=== PATIENT | male | born 1985 | race Caucasian/White ===

== ENCOUNTER → 2021-08-15 09:43 | Outpatient (CLI) | payer OTHER, SELFPAY ==
--- NOTE | 2021-08-15 09:47 | DI.MRI.S_ITS ---
PROCEDURE: MR ANKLE RT WO CON INDICATIONS: Pain in right foot TECHNIQUE: Noncontrast sagittal T1 spin echo and T2 fast spin echo with fat saturation, axial proton density fast spin echo and T2 fast spin echo with fat saturation, coronal T1 spin echo and T2 fast spin echo with fat saturation through the ankle/hindfoot. COMPARISON: None. FINDINGS: Image quality: Excellent. Bones and joints: No bone marrow contusions or fractures. No hindfoot coalitions. No osteochondral injuries of the talar dome. No pathologic joint effusions. Medial structures: The posterior tibialis, flexor digitorum longus, and flexor hallucis longus tendons are intact. The posterior tibial neurovascular bundle appears normal within the tarsal tunnel, without extrinsic mass effect. The deep layer (anterior and posterior tibiotalar ligaments) and superficial layer (tibionavicular, tibiospring, and tibiocalcaneal ligaments) of the deltoid ligament appear normal. The spring ligament components (superomedial calcaneonavicular, medioplantar oblique calcaneonavicular, and inferoplantar longitudinal ligaments) are intact. Lateral structures: The anterior talofibular, calcaneofibular, and posterior talofibular ligaments appear intact. More superiorly, the anterior and posterior tibiofibular ligaments appear mildly thickened with intrasubstance T2 hyperintense signal suggestive of sprain/low-grade intrasubstance partial-thickness tear. The tibiofibular syndesmosis is normal in width at 2 mm or less. The peroneus longus and brevis tendons demonstrate normal location and morphology. Adjacent bony peroneal tubercle and retrotrochlear prominence are normal in size. The sinus tarsi demonstrates normal fatty signal, without edema, fibrosis, or cyst formation. Visualized sinus tarsi components (cervical ligament, interosseous talocalcaneal ligament, roots of the inferior extensor retinaculum) appear normal. The calcaneonavicular and calcaneocuboid components of the bifurcate ligament appear intact. The dorsal calcaneocuboid ligament appears intact. Anterior structures: The tibialis anterior, extensor hallucis longus, and extensor digitorum longus tendons appear intact. The dorsal talonavicular ligament appears intact. Posterior and plantar structures: Achilles tendon is intact. Medial and lateral bands of the plantar fascia are of normal thickness. No abductor digiti quinti muscle atrophy to suggest Callaway neuropathy. IMPRESSION: 1. No marrow edema. No fracture or dislocation. No osteochondral injury of talar dome. 2. Finding is suggestive of low-grade sprain/intrasubstance partial-thickness tear involving anterior and posterior tibial fibular ligaments. Anterior and posterior talofibular ligaments and calcaneofibular ligament are intact. Medial ankle ligaments are intact. 3. Ankle tendons are within normal limits. Dictated by: Meliton Silvestre M.D. on 08/15/2021 at 11:28 Approved by: Meliton Silvestre M.D. on 08/15/2021 at 11:41
== END ==
PROVIDERS: Referring Provider Podiatrist; Visit Provider Podiatrist
DX: G57.51 Tarsal tunnel syndrome, right lower limb (principal); M79.671 Pain in right foot; R26.2 Difficulty in walking, not elsewhere classified; M72.2 Plantar fascial fibromatosis
CPT/HCPCS: 73721

== ENCOUNTER 2024-05-12 15:28 | Emergency (ER) | payer OTHER, SELFPAY ==
[2024-05-12] VITALS (9 sets, daily range): BP systolic 95–133; BP diastolic 61–95; PULSE 57–78; RESP 13–33; TEMP 36.8; O2SAT 94–97; BMI 36.8
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
--- NOTE | 2024-05-12 17:16 | EKG_ITS ---
[address] [address] [address] [address] Test Date: 2024-05-12 Pat Name: Estiven Gaines Department: Room: Gender: Male Kennel Keeper: TERRI : 1985 Requested By: Order Number: [id number] Reading MD: Honorio Flores MD Measurements Intervals Nikolai Rate: 61 P: 28 DE: 166 QRS: 19 QRSD: 76 T: 44 QT: 398 QTc: 400 Interpretive Statements Normal sinus rhythm Electronically Signed On 05-13-2024 11:58:36 PST by Honorio Flores MD
[2024-05-12 17:31] LABS: Add Manual Diff / Slide Review NO; Basophils Absolute Auto 0 /uL (0-100); Basophils Percent Auto 0.6 % (0-2); Eosinophils Absolute Auto 500 /uL (0-450); Eosinophils Percent Auto 6.1 % (2-4); Hematocrit 42.9 % (41-53); Hemoglobin 14.6 g/dL (13.5-17.5); Lymphocytes Absolute Auto 1700 /uL (1100-4500); Lymphocytes Percent Auto 21.6 % (25-40); Mean Corpuscular HGB Conc 34.1 % (30-36); Mean Corpuscular Hemoglobin 30.7 PG (26-34); Mean Corpuscular Volume 90.2 fL (80-100); Monocytes Absolute Auto 800 /uL (0-900); Monocytes Percent Auto 10.1 % (3-14); Neutrophils Absolute Auto 4800 /uL (1500-7000); Neutrophils Percent Auto 61.6 % (50-75); Platelet Count 216 X10^3/uL (150-400); Red Blood Cell Count 4.75 X10^6/uL (4.5-5.9); Red Cell Distribution Width 12.3 % (11.6-14.8); White Blood Cell Count 7.7 X10^3/uL (4.5-11.0)
[2024-05-12] MEDS: ONDANSETRON 4 MG/2 ML INJ IV (17:39)
[2024-05-12] MEDS: HYDROMORPHONE 0.5 MG INJ IV (17:39)
[2024-05-12 17:49] LABS: Alanine Aminotransferase 49 IU/L (<50); Albumin 4.5 g/dL (3.5-5.0); Albumin Globulin Ratio 1.4 (1.0-2.8); Alkaline Phosphatase 85 U/L (38-126); Aspartate Aminotransferase 38 IU/L (17-59); BUN Creatinine Ratio 15.8 (6-22); Bilirubin Total 0.5 mg/dL (0.2-1.3); Blood Urea Nitrogen 16 mg/dL (9-20); Calcium 9.4 mg/dL (8.4-10.2); Carbon Dioxide 28 mmol/L (22-32); Chloride 103 mmol/L (98-107); Estimated Glomerular Filt Rate > 60 mL/min (>60); Globulin 3.3 g/dL (1.7-4.1); Glucose 91 mg/dL (70-100); HEMOLYSIS < 15 (0-50); Lactate (Lactic Acid) 0.6 mmol/L (0.7-2.1); Lipase 67 U/L (23-300); Potassium 4.2 mmol/L (3.4-5.1); Sodium 138 mmol/L (137-145); Total Protein 7.8 g/dL (6.3-8.2)
--- NOTE | 2024-05-12 18:13 | PC.NURSE ---
Reassessed pt's pain. Stated that he was still feeling pain. Pt declined any more pain medication at this time.
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
== END 2024-05-12 19:32 | disposition home or self-care (01) ==
PROVIDERS: Emergency Provider Emergency Medicine
DX: R10.10 Upper abdominal pain, unspecified (principal); S39.81XA Other specified injuries of abdomen, initial encounter; V53.5XXA Driver of pick-up truck or van injured in collision with car, pick-up truck or van in traffic accident, initial encounter; M25.512 Pain in left shoulder; R20.0 Anesthesia of skin; M54.2 Cervicalgia
CPT/HCPCS: 36415; 71275; 74177; 80053; 83605; 83690; 85025; 86850; 86900; 86901; 93005; 93010; 96374; 96375; 99284; J1171; J2405; Q9967

== ENCOUNTER 2024-06-07 21:37 | Emergency (ER) | payer OTHER, SELFPAY ==
[2024-06-07 21:42] VITALS: BP 139/89; PULSE 72; RESP 18; TEMP 36.6; O2SAT 97; BMI 36.9
[2024-06-08 01:20] VITALS: BP 134/88; PULSE 71; RESP 18; O2SAT 96
== END 2024-06-08 02:40 | disposition left against medical advice (07) ==
PROVIDERS: Emergency Provider Emergency Medicine
DX: M54.9 Dorsalgia, unspecified (principal)
CPT/HCPCS: 99281

== ENCOUNTER → 2024-07-09 11:39 | Outpatient (CLI) | payer OTHER, SELFPAY ==
--- NOTE | 2024-07-09 11:40 | DI.RAD.S_ITS ---
PROCEDURE: XR THORACIC SPINE 3V INDICATIONS: Thoracic pain TECHNIQUE: 3 views of the thoracic spine were acquired. COMPARISON: None. FINDINGS: Bones: No fractures or dislocations. No suspicious bony lesions. 12 pairs of ribs are noted, and appear intact where visualized. Minimal dextrocurvature of the upper thoracic spine with the apex at T5. Minimal levocurvature the lower thoracic spine with the apex at T9. Soft tissues: No paravertebral stripe thickening. IMPRESSION: No acute bony abnormality. Dictated by: Maik Gonzalez M.D. on 07/09/2024 at 15:22 Approved by: Maik Gonzalez M.D. on 07/09/2024 at 15:25
[2024-07-09 12:44] LABS: Add Manual Diff / Slide Review NO; Basophils Absolute Auto 0 /uL (0-100); Basophils Percent Auto 0.7 % (0-2); Eosinophils Absolute Auto 600 /uL (0-450); Eosinophils Percent Auto 9.4 % (2-4); Hematocrit 43.1 % (41-53); Hemoglobin 14.9 g/dL (13.5-17.5); Lymphocytes Absolute Auto 1800 /uL (1100-4500); Lymphocytes Percent Auto 27.6 % (25-40); Mean Corpuscular HGB Conc 34.6 % (30-36); Mean Corpuscular Hemoglobin 30.8 PG (26-34); Mean Corpuscular Volume 89.3 fL (80-100); Monocytes Absolute Auto 600 /uL (0-900); Monocytes Percent Auto 9.7 % (3-14); Neutrophils Absolute Auto 3500 /uL (1500-7000); Neutrophils Percent Auto 52.6 % (50-75); Platelet Count 200 X10^3/uL (150-400); Red Blood Cell Count 4.83 X10^6/uL (4.5-5.9); Red Cell Distribution Width 12.7 % (11.6-14.8); White Blood Cell Count 6.6 X10^3/uL (4.5-11.0)
[2024-07-09 12:58] LABS: HEMOLYSIS < 15 (0-50); Iron 103 ug/dL (49-181)
[2024-07-09 13:05] LABS: Alanine Aminotransferase 46 IU/L (<50); Albumin 4.2 g/dL (3.5-5.0); Albumin Globulin Ratio 1.4 (1.0-2.8); Alkaline Phosphatase 86 U/L (38-126); Aspartate Aminotransferase 35 IU/L (17-59); BUN Creatinine Ratio 14.1 (6-22); Bilirubin Total 0.6 mg/dL (0.2-1.3); Blood Urea Nitrogen 13 mg/dL (9-20); Calcium 9.5 mg/dL (8.4-10.2); Carbon Dioxide 24 mmol/L (22-32); Chloride 105 mmol/L (98-107); Cholesterol 189 mg/dL (140-199); Estimated Glomerular Filt Rate > 60 mL/min (>60); Globulin 2.9 g/dL (1.7-4.1); Glucose 91 mg/dL (70-100); HDL Cholesterol 31 mg/dL (40-60); HEMOLYSIS < 15 (0-50); LDL Cholesterol Calculated 124 mg/dL (<100); Potassium 4.3 mmol/L (3.4-5.1); Sodium 139 mmol/L (137-145); Total Protein 7.1 g/dL (6.3-8.2); Triglycerides 172 mg/dL (35-150)
[2024-07-09 13:12] LABS: Percent Iron Saturation 37 % (20-50); Total Iron Binding Capacity 282 ug/dL (261-462); Transferrin 213 mg/dL (206-381)
[2024-07-09 13:36] LABS: Ferritin 126 ng/mL (18-464)
== END ==
PROVIDERS: PCP Family Medicine; Referring Provider Family Medicine; Visit Provider Family Medicine
DX: Z13.6 Encounter for screening for cardiovascular disorders (principal); R25.2 Cramp and spasm; R06.09 Other forms of dyspnea; E66.9 Obesity, unspecified; R53.83 Other fatigue
CPT/HCPCS: 36415; 72072; 80053; 80061; 82728; 83540; 83550; 83735; 84443; 85025

== ENCOUNTER → 2024-10-12 10:23 | Outpatient (CLI) | payer OTHER, SELFPAY ==
[2024-10-12 10:56] LABS: Add Manual Diff / Slide Review NO; Basophils Absolute Auto 0 /uL (0-100); Basophils Percent Auto 0.6 % (0-2); Eosinophils Absolute Auto 600 /uL (0-450); Eosinophils Percent Auto 9.9 % (2-4); Hematocrit 42.4 % (41-53); Hemoglobin 14.3 g/dL (13.5-17.5); Lymphocytes Absolute Auto 1600 /uL (1100-4500); Lymphocytes Percent Auto 25.4 % (25-40); Mean Corpuscular HGB Conc 33.9 % (30-36); Mean Corpuscular Hemoglobin 30.6 PG (26-34); Mean Corpuscular Volume 90.3 fL (80-100); Monocytes Absolute Auto 600 /uL (0-900); Monocytes Percent Auto 9.5 % (3-14); Neutrophils Absolute Auto 3500 /uL (1500-7000); Neutrophils Percent Auto 54.6 % (50-75); Platelet Count 198 X10^3/uL (150-400); Red Blood Cell Count 4.69 X10^6/uL (4.5-5.9); Red Cell Distribution Width 12.8 % (11.6-14.8); White Blood Cell Count 6.3 X10^3/uL (4.5-11.0)
== END ==
PROVIDERS: PCP Family Medicine; Referring Provider Family Medicine; Visit Provider Family Medicine
DX: E66.9 Obesity, unspecified (principal); G47.33 Obstructive sleep apnea (adult) (pediatric); D72.10 Eosinophilia, unspecified
CPT/HCPCS: 36415; 85025

== ENCOUNTER → 2025-01-14 10:32 | Outpatient (CLI) | payer OTHER, SELFPAY ==
--- NOTE | 2025-01-14 10:33 | DI.MRI.S_ITS ---
PROCEDURE: MR LUMBAR SPINE WO CON INDICATIONS: Back pain TECHNIQUE: Noncontrast sagittal T1 spin echo and T2 fast echo, sagittal STIR, and T2 fast spin echo through the lumbar spine. In cases with scoliosis, additional coronal T2 fast spin echo may be performed. COMPARISON: None. FINDINGS: Image quality: Excellent. Alignment and Curvature: There is normal bony alignment. Bone Marrow: Marrow is of normal overall signal. No acute vertebral body compression fractures. Spinal Cord: Conus medullaris terminates at the T12-L1 level. Visualized cord demonstrates normal signal and size. Paraspinous Soft Tissues: No paravertebral masses. T12-L1: Normal appearance. L1-L2: Normal appearance. L2-L3: Normal appearance. L3-L4: Normal appearance. L4-L5: There is disc bulge with superimposed mild posterior central protrusion. There is also a 3 millimeter right central disc extrusion with mild inferior migration to supra pedicular level. There is also annular fissure measuring 1.3 cm in length. There is also bilateral facet arthropathy with facet joint effusion. There is mild bilateral foraminal stenosis L5-S1: There is disc bulge with posterior right paracentral annular fissure measuring 1.15 cm in length. There is also bilateral facet arthropathy and mild ligamentum flavum thickening. There is no significant spinal stenosis. IMPRESSION: 1. Degenerative changes at L4-L5 and L5-S1 as described, with mild bilateral foraminal narrowing at L4-L5. 2. No central stenosis or acute osseous lesions. Dictated by: Shorty Nelson M.D. on 01/16/2025 at 16:03 Approved by: Shorty Nelsno M.D. on 01/16/2025 at 16:12
== END ==
PROVIDERS: PCP Family Medicine; Referring Provider Family Medicine; Visit Provider Family Medicine
DX: M47.816 Spondylosis without myelopathy or radiculopathy, lumbar region (principal); M47.817 Spondylosis without myelopathy or radiculopathy, lumbosacral region; M48.061 Spinal stenosis, lumbar region without neurogenic claudication; M54.9 Dorsalgia, unspecified; G89.29 Other chronic pain
CPT/HCPCS: 72148

== ENCOUNTER → 2025-01-15 14:08 | Outpatient (CLI) | payer OTHER, SELFPAY ==
--- NOTE | 2025-01-15 14:11 | DI.MRI.S_ITS ---
PROCEDURE: MR CERVICAL SPINE WO CON INDICATIONS: neck pain TECHNIQUE: Noncontrast sagittal T1 spin echo and T2 fast spin echo, sagittal STIR, foraminal oblique sagittal T2 fast spin echo, and axial gradient echo or T2 fast spin echo through the cervical spine. COMPARISON: None. FINDINGS: Image quality: Excellent. Alignment and Curvature: There is normal bony alignment. Bone Marrow: Marrow demonstrates normal overall signal. Spinal Cord: Visualized spinal cord has normal size and signal. No cerebellar tonsillar herniation. Paraspinous Soft Tissues: No paravertebral masses. Prevertebral soft tissues are normal in thickness. C2-C3: Normal appearance. C3-C4: Normal appearance. C4-C5: No spinal canal stenosis. Mild left neural foraminal stenosis due to uncovertebral greater than facet arthrosis. C5-C6: Mildly degenerated disc osteophyte complex indents anterior thecal sac but does not result in significant spinal canal stenosis. Mild left neural foraminal stenosis due to uncovertebral and facet arthrosis. No right neural foraminal stenosis. C6-C7: Degenerate disc osteophyte complex with a central to left subarticular annular fissure. No disc extrusion or herniation. Mild bilateral neural foraminal stenosis due to uncovertebral greater than facet arthrosis. C7-T1: Normal appearance. IMPRESSION: 1. Degenerated discs at C5-6 and C6-7 with a C6-7 annular fissure. 2. Mild neural foraminal stenosis bilaterally at C6-7 and mild on the left at C4-5 and C5-6. Dictated by: Juan Diego Torres M.D. on 01/17/2025 at 11:58 Approved by: Juan Diego Torres M.D. on 01/17/2025 at 12:06
--- NOTE | 2025-01-15 14:11 | DI.MRI.S_ITS ---
PROCEDURE: MR THORACIC SPINE WO CON INDICATIONS: middle back pain TECHNIQUE: Noncontrast sagittal T1 spine echo and T2 fast spin echo, sagittal STIR, and T2 fast spin echo through the thoracic spine. COMPARISON: None. FINDINGS: Image quality: Excellent. Alignment and Curvature: There is normal bony alignment. Bone Marrow: Typical spinal hemangioma in T8. No suspicious marrow replacing process. No fracture. Spinal Cord: Visualized spinal cord is normal in size and signal. Paraspinous Soft Tissues: No paravertebral masses. Miscellaneous: On axial images, central canal and foramina appear widely patent at all scanned levels. A mildly degenerated disc at T6-7 with a left paracentral and central asymmetric disc bulge indents anterior thecal sac but does not result in significant spinal canal or neural foraminal stenosis. Desiccated disc at T8-9. IMPRESSION: Degenerated disc at T6-7 and T8-9 without spinal canal or neural foraminal stenosis. Dictated by: Juan Diego Torres M.D. on 01/17/2025 at 11:55 Approved by: Juan Diego Torres M.D. on 01/17/2025 at 11:58
== END ==
LOC: MRI 14:09
PROVIDERS: PCP Family Medicine; Referring Provider Family Medicine; Visit Provider Family Medicine
DX: M50.322 Other cervical disc degeneration at C5-C6 level (principal); M48.02 Spinal stenosis, cervical region; M51.34 Other intervertebral disc degeneration, thoracic region
CPT/HCPCS: 72141; 72146

== ENCOUNTER → 2025-01-28 08:05 | Outpatient (CLI) | payer OTHER, SELFPAY ==
--- NOTE | 2025-01-28 08:06 | DI.ECHO.S_ITS ---
[facility] : : [address] : [facility] : : [place], : : [place] [address] : : Phone: [phone] Echocardiogram Report + + :Name: SHELBY BURRELL Study Date: 01/28/2025 Height: 68 in : :[facility] ReadingLocation: Weight: 244 lb : : Gender: Male BSA: 2.2 m2 : :: 1985 Age: 39 yrs BP: 138/87 mmHg: :Reason For Study: DYPSNEA ON EXERTION : :Ordering Physician: ABISAI, : :VERN Gonzalez Performed By: Varinder Barrientos : :Referring: VERN BARONE : + + Interpretation Summary The ejection fraction is estimated to be 55-60%. Diastolic parameters suggest probable normal left ventricular diastolic function and normal filling pressures. The right ventricle is grossly normal size. The right ventricular systolic function is normal. No valvular abnormalities. Pulmonary artery pressures cannot be estimated because of the lack of a measurable TR jet velocity but the IVC suggests a CVP of around 3 mmHg. Procedure: A two-dimensional transthoracic echocardiogram with color flow and Doppler was performed. The study quality was technically good. There is no prior echocardiogram noted for this patient. The patient was in normal sinus rhythm during the exam. Left Ventricle: The left ventricle is normal in size. There is normal left ventricular wall thickness. There is no ventricular septal defect visualized. The ejection fraction is estimated to be 55-60%. There are no focal wall motion abnormalities. Diastolic parameters suggest probable normal left ventricular diastolic function and normal filling pressures. Right Ventricle: The right ventricle is grossly normal size. The right ventricular systolic function is normal. Atria: The left atrial size is normal. Right atrial size is normal. There is no Doppler evidence for an interatrial shunt. Mitral Valve: The mitral valve leaflets appear normal. There is no evidence of stenosis, fluttering, or prolapse. There is no mitral regurgitation noted. Aortic Valve: The aortic valve is trileaflet. The aortic valve opens well. There is no aortic valve stenosis. No aortic regurgitation is present. Tricuspid Valve: The tricuspid valve leaflets are thin and pliable. There is trace tricuspid regurgitation. Pulmonary artery pressures cannot be estimated because of the lack of a measurable TR jet velocity but the IVC suggests a CVP of around 3 mmHg. Pulmonic Valve: The pulmonic valve is not well seen, but is grossly normal. There is no pulmonic valvular regurgitation. Great Vessels: The aortic root is normal size. The dimensions of the ascending aorta are normal. The pulmonary artery is normal size. The IVC is of normal diameter and collapses greater than 50% with a sniff. This suggests a low right atrial pressure of 3 mm Hg. Pericardium/ Pleura There is no pericardial effusion. There is no pleural effusion. MMode/2D Measurements & Calculations LVIDd: 4.7 cm AoV Openin.0 cm LVIDs: 3.4 cm LVOT diam: 2.2 cm IVSd: 0.75 cm Ao root diam: 3.1 cm LVPWd: 0.77 cm asc Aorta Diam: 3.0 cm LV hawkins. diameter/BSA (cm/m^2): 2.1 Ao Arch Diam (Prox Trans): 1.8 cm LV sys. diameter/BSA (cm/m^2): 1.5 FS: 26.9 % EPSS: 0.55 cm LA A2 area: 15.3 cm2 RA long axis: 4.7 cm LA A4 area: 15.9 cm2 RA area: 17.3 cm2 LA length (vol): 5.1 cm RA vol: 54.0 ml LA vol: 40.4 ml RA : 24.3 ml/m2 LA vol index: 18.2 ml/m2 RVD1 (basal): 3.7 cm IVC diam: 1.1 cm TAPSE: 2.5 cm Doppler Measurements & Calculations Ao V2 max: 115.5 cm/sec LVOT Max Joshua: 104.8 cm/sec Ao V2 mean: 82.9 cm/sec LV V1 max P.4 mmHg Ao V2 VTI: 25.2 cm LV V1 VTI: 22.8 cm Ao max P.3 mmHg Ao mean P.0 mmHg KOBE(I,D): 3.5 cm2 MV E max joshua: 64.3 cm/sec KOBE(V,D): 3.5 cm2 MV A max joshua: 45.4 cm/sec KOBE indexed to BSA (cm^2/m^2): 1.6 MV E/A: 1.4 sev ratio: 0.90 Med Peak E' Joshua: 10.0 cm/sec E/E' med: 6.5 Lat Peak E' Joshua: 13.9 cm/sec E/E' lat: 4.6 E/e' average: 5.5 MV dec time: 0.21 sec TR max joshua: 209.5 cm/sec TR max P.6 mmHg PA V2 max: 130.7 cm/sec SV(LVOT): 88.2 ml PA V2 mean: 82.3 cm/sec PA mean P.2 mmHg PA pr(Accel): 56.7 mmHg Reading Physician:09:30 AM
--- NOTE | 2025-01-28 21:20 | DI.NM.S_ITS ---
DATE OF SERVICE: 01/28/2025 PROCEDURE: Exercise stress test. INDICATIONS: Chest pain. CARDIAC STRESS: The patient underwent exercise stress test under the supervision of an attending staff using standard Serg protocol. He walked on Serg protocol for 9 minutes and 41 seconds, achieved maximum heart rate of 169, which was 94% of target heart rate with normal blood pressure response. Resting blood pressure 122/80 and peak blood pressure 180/88. Baseline rhythm sinus. Occasional PVC at rest. During stress at peak exercise, artifacts affecting interpretation; however, in immediate recovery, no obvious ischemic changes or significant arrhythmias. No chest pain. Had shortness of breath. Oxygen saturation remained 98% or greater throughout the study. 10.1 METS of workload and OTONIEL positive 19%. Normal recovery. CONCLUSION: Exercise stress test did not reveal any convincing ischemic EKG changes as stated above. Normal blood pressure response and heart rate response. 10.1 METS of workload. No complex arrhythmias during stress. No chest pain. Had shortness of breath with oxygen saturation remained 98% or more than 98% throughout the study. Overall, low-risk exercise stress test. Estiven Gaines - REFUGIO/kevin/RODRIGO doc#: [id number]/job#: [id number] dd: 01/28/2025 16:56:00 dt: 01/28/2025 21:10:00 DICTATING /COPIES TO: Merary Vang MD COPIES MNE: TJ;
== END ==
LOC: ECHO 08:06
PROVIDERS: PCP Family Medicine; Referring Provider Family Medicine; Visit Provider Family Medicine
DX: R07.9 Chest pain, unspecified (principal); R06.09 Other forms of dyspnea; R94.2 Abnormal results of pulmonary function studies
CPT/HCPCS: 93017; 93306